=== PATIENT | female | born 1970 | race African-American/Black ===

== ENCOUNTER → 2022-04-28 | Outpatient (CLI) | payer MEDICARE ==
[~2022-04-28] MED LIST: ACETAMINOP325 MG/10 PO; METFORMIN HCL500 M1 PO; NEURONTIN400 MG PO; RAMIPRIL5 MG PO; VICODIN HP 10-1 EAC1 PO
== END ==
LOC: RAD 11:01 → OR 05-13 11:01 → EDSTATUS 05-13 12:30
PROVIDERS: ATTEND Internal Medicine Gastroenterology
DX: Z01.810 Encounter for preprocedural cardiovascular examination (principal); Z01.812 Encounter for preprocedural laboratory examination; K94.20 Gastrostomy complication, unspecified; Y83.3 Surgical operation with formation of external stoma as the cause of abnormal reaction of the patient, or of later complication, without mention of misadventure at the time of the procedure; Z20.822 Contact with and (suspected) exposure to COVID-19
CPT/HCPCS: 0223U; 36415; 93005